=== PATIENT | female | born 1950 | race Caucasian/White ===

== ENCOUNTER → 2016-11-12 | Outpatient (CLI) | payer MEDICARE, OTHER ==
[~2016-11-12] MED LIST: AMLO5TAB PO; GLUCOSAMINE CHO1 CA2 PO; HYDROXYZINE PAM25 MG PO; MOTRIN 600MG.600 MG PO; OMEPRAZOLE20 MG PO; PROVENTIL0.09 MG/A1 IH; SKELAXIN 800MG800 MG PO; TYLENOL W/CODEI1 TA2 PO; VENLAFAXINE H37.5 M2 PO
--- NOTE | 2016-11-16 16:07 | RADIOLOGY REPORT PS360 ---
DIG MAMM-SCREEN SUZY W/CAD CAD Screening COMPARISON: Analog mammograms 07/02/2009 INDICATION: There is a history of breast cancer patient's sister and paternal cousin both before menopause. TECHNIQUE: Standard CC and MLO images were obtained. R2 CAD reviewed. FINDINGS: Moderate diffuse fibroglandular densities are seen in the central portions and subareolar regions of both breasts. There is arterial calcification in each breast. In addition there are few scattered benign-appearing calcination is in the subareolar regions of each breast. There is no suspicious lesion and there are no suspicious microcalcifications. There are small nodes in both axilla. IMPRESSION: Moderate diffuse breast density with no suspicious lesion seen recommend yearly follow-up BI-RADS CATEGORY: 2_Benign RECOMMENDED FOLLOWUP: 12M 12 MONTH FOLLOW-UP (A letter has been sent to the patient regarding results of the study.)
== END ==
LOC: RAD 16:23
DX: Z12.31 Encounter for screening mammogram for malignant neoplasm of breast (principal)
CPT/HCPCS: G0202

== ENCOUNTER → 2016-12-09 | Outpatient (CLI) | payer MEDICARE, OTHER ==
[2016-12-09 10:18] LABS: HEMOGLOBIN 12.9 g/dL (12.2-16.2); LYMPH # 2.5 K/mm3 (0.7-4.5); LYMPH % 36.7 % (10-50.0)
[2016-12-09 11:30] LABS: BUN 10 mg/dL (7-18)
[2016-12-09 11:37] LABS: GFR (ESTIMATED) 83 ML/MIN (59-)
== END ==
LOC: LAB 09:50
PROVIDERS: Surgery
DX: Z12.11 Encounter for screening for malignant neoplasm of colon (principal); Z01.818 Encounter for other preprocedural examination